=== PATIENT | female | born 1950 | race Caucasian/White ===

== ENCOUNTER 2017-03-12 00:27 | Emergency (ER) | payer MEDICARE ==
[2017-03-12] MEDS ORDERED: SODIUM CHLORIDE 0.9% 1,000 ML IV STA (02:16)
[2017-03-12] MEDS ORDERED: MECLIZINE 12.5 MG TAB PO STA (02:16)
--- NOTE | 2017-03-12 02:24 | ED ---
Dizziness HPI - General Chief Complaint: Dizziness Stated Complaint: Dizzy,Nauseous Time Seen by Provider: 03/12/17 01:52 Source: patient, RN notes reviewed, old records reviewed Mode of arrival: wheelchair Limitations: no limitations - History of Present Illness Initial Comments: 66-year-old female presents emergency Department chief complaint of acute onset of dizziness. Patient was spinning for the past hour. Patient reports that she also said somewhat short of breath. Denies any specific chest pain. Denies any vomiting. She states that she had these symptoms she was laying down at home. She reports that she tried to rest but the room continue to spin and she fell lightheaded. She called her daughter and her daughter brought her here. Patient states that she is concerned maybe something more concerning than vertigo. She denies any headache recent falls or trauma. - Related Data Previous Rx's Medication Instructions Recorded Meclizine [Antivert] 12.5 mg PO Q8HR #15 tablet 03/12/17 Ondansetron Odt [Zofran Odt] 4 mg PO Q8HR PRN #15 tab 03/12/17 Allergies Allergy/AdvReac Type Severity Reaction Status Date / Time No Known Allergies Allergy Verified 01/08/14 17:55 Review of Systems ROS Statement: Those systems with pertinent positive or pertinent negative responses have been documented in the HPI. ROS Other: All systems not noted in ROS Statement are negative. Past Medical History Past Medical History: No Reported History History of Any Multi-Drug Resistant Organisms: None Reported Past Surgical History: Section Past Psychological History: No Psychological Hx Reported Smoking Status: Former smoker Past Alcohol Use History: None Reported Past Drug Use History: None Reported General Exam - General Exam Comments Initial Comments: 66-year-old female. No acute distress. Limitations: no limitations Course Vital Signs 03/12/17 03/12/17 03/12/17 00:39 03:10 04:59 Temperature 97.4 F L 97.7 F Pulse Rate 59 L 53 L Pulse Rate [ 96 Pulse Oximetery ] Respiratory 18 18 Rate Blood Pressure 136/77 159/78 Blood Pressure 128/76 [Right Arm Supine] Blood Pressure 125/69 [Sitting] Blood Pressure 135/72 [Standing] O2 Sat by Pulse 96 96 Oximetry Medical Decision Making - Lab Data Result diagrams: 03/12/17 03:10 03/12/17 03:10 Lab Results 03/12/17 03/12/17 03/12/17 Range/Units 03:10 03:10 03:10 WBC 6.0 (3.8-10.6) k/uL RBC 4.19 (3.80-5.40) m/uL Hgb 13.2 (11.4-16.0) gm/dL Hct 40.6 (34.0-46.0) % MCV 96.7 (80.0-100.0) fL MCH 31.6 (25.0-35.0) pg MCHC 32.6 (31.0-37.0) g/dL RDW 13.9 (11.5-15.5) % Plt Count 190 (150-450) k/uL Neutrophils % 53 % Lymphocytes % 34 % Monocytes % 6 % Eosinophils % 3 % Basophils % 1 % Neutrophils # 3.2 (1.3-7.7) k/uL Lymphocytes # 2.0 (1.0-4.8) k/uL Monocytes # 0.3 (0-1.0) k/uL Eosinophils # 0.2 (0-0.7) k/uL Basophils # 0.1 (0-0.2) k/uL PT 10.9 (9.0-12.0) sec INR 1.1 (<1.2) D-Dimer 0.31 (<0.60) mg/L FEU Sodium 144 (137-145) mmol/L Potassium 4.1 (3.5-5.1) mmol/L Chloride 109 H (98-107) mmol/L Carbon Dioxide 25 (22-30) mmol/L Anion Gap 10 mmol/L BUN 13 (7-17) mg/dL Creatinine 0.90 (0.52-1.04) mg/dL Est GFR (MDRD) Af Amer >60 (>60 ml/min/1.73 sqM) Est GFR (MDRD) Non-Af >60 (>60 ml/min/1.73 sqM) Glucose 90 (74-99) mg/dL Calcium 9.7 (8.4-10.2) mg/dL Total Bilirubin 0.3 (0.2-1.3) mg/dL AST 31 (14-36) U/L ALT 44 (9-52) U/L Alkaline Phosphatase 80 (38-126) U/L Troponin I (0.000-0.034) ng/mL Total Protein 7.1 (6.3-8.2) g/dL Albumin 4.3 (3.5-5.0) g/dL Urine Color Urine Appearance (Clear) Urine pH (5.0-8.0) Ur Specific Johnston (1.001-1.035) Urine Protein (Negative) Urine Glucose (UA) (Negative) Urine Ketones (Negative) Urine Blood (Negative) Urine Nitrite (Negative) Urine Bilirubin (Negative) Urine Urobilinogen (<2.0) mg/dL Ur Leukocyte Esterase (Negative) 03/12/17 03/12/17 Range/Units 03:10 03:10 WBC (3.8-10.6) k/uL RBC (3.80-5.40) m/uL Hgb (11.4-16.0) gm/dL Hct (34.0-46.0) % MCV (80.0-100.0) fL MCH (25.0-35.0) pg MCHC (31.0-37.0) g/dL RDW (11.5-15.5) % Plt Count (150-450) k/uL Neutrophils % % Lymphocytes % % Monocytes % % Eosinophils % % Basophils % % Neutrophils # (1.3-7.7) k/uL Lymphocytes # (1.0-4.8) k/uL Monocytes # (0-1.0) k/uL Eosinophils # (0-0.7) k/uL Basophils # (0-0.2) k/uL PT (9.0-12.0) sec INR (<1.2) D-Dimer (<0.60) mg/L FEU Sodium (137-145) mmol/L Potassium (3.5-5.1) mmol/L Chloride (98-107) mmol/L Carbon Dioxide (22-30) mmol/L Anion Gap mmol/L BUN (7-17) mg/dL Creatinine (0.52-1.04) mg/dL Est GFR (MDRD) Af Amer (>60 ml/min/1.73 sqM) Est GFR (MDRD) Non-Af (>60 ml/min/1.73 sqM) Glucose (74-99) mg/dL Calcium (8.4-10.2) mg/dL Total Bilirubin (0.2-1.3) mg/dL AST (14-36) U/L ALT (9-52) U/L Alkaline Phosphatase (38-126) U/L Troponin I <0.012 (0.000-0.034) ng/mL Total Protein (6.3-8.2) g/dL Albumin (3.5-5.0) g/dL Urine Color Light Yellow Urine Appearance Clear (Clear) Urine pH 6.0 (5.0-8.0) Ur Specific Johnston 1.003 (1.001-1.035) Urine Protein Negative (Negative) Urine Glucose (UA) Negative (Negative) Urine Ketones Negative (Negative) Urine Blood Negative (Negative) Urine Nitrite Negative (Negative) Urine Bilirubin Negative (Negative) Urine Urobilinogen <2.0 (<2.0) mg/dL Ur Leukocyte Esterase Negative (Negative) 03/12/17 05:40 EKG shows sinus bradycardia. Nonspecific ST wave abnormality. Retrograde of 57 bpm. MA interval 166 ms. QRS latter-day 80 ms. No evidence of ST elevation or T-wave inversion. No evidence of a 2 or ventricular arrhythmias. Disposition Clinical Impression: Vertigo Disposition: HOME SELF-CARE Condition: Good Instructions: Vertigo (ED), Dizziness (ED) Additional Instructions: Follow up with PCP tomorrow. Take medication as directed. Return to the Emergency medicine department if any alarming signs or symptoms that occur. Prescriptions: Meclizine [Antivert] 12.5 mg PO Q8HR #15 tablet Ondansetron Odt [Zofran Odt] 4 mg PO Q8HR PRN #15 tab PRN Reason: Nausea Referrals: None,Stated [Primary Care Provider] - 1-2 days Gabriel Rush MD [STAFF PHYSICIAN] - 1-2 days Time of Disposition: 05:20
[2017-03-12 03:43] LABS: Appearance,Urine Clear (Clear); Bilirubin,Urine Negative (Negative); Glucose,Urine (UA) Negative (Negative); Ketones,Urine Negative (Negative); Leukocyte Esterase,Urine Negative (Negative); Nitrite,Urine Negative (Negative); Protein,Urine Negative (Negative); Specific Gravity,Urine 1.003 (1.001-1.035); UA Billing (MACRO vs. MICRO) CHEM; Urobilinogen,Urine <2.0 mg/dL (<2.0)
--- NOTE | 2017-03-12 03:51 | XR ---
EXAM: XR Chest, 2 Views CLINICAL HISTORY: Reason: Pain TECHNIQUE: Frontal and lateral views of the chest. COMPARISON: None FINDINGS: Lungs: There is subsegmental atelectasis at both of the lung bases. There is no focal airspace disease or pulmonary edema. Pleural space: Unremarkable. No pneumothorax. Heart: Unremarkable. No cardiomegaly. Mediastinum: Unremarkable. Bones/joints: Unremarkable. IMPRESSION: Subsegmental atelectasis at bilateral bases. Otherwise, no acute cardiopulmonary abnormalities.
[2017-03-12 03:54] LABS: ALT 44 U/L (9-52); AST 31 U/L (14-36); Alkaline Phosphatase 80 U/L (38-126); Anion Gap 10 mmol/L; Blood Urea Nitrogen 13 mg/dL (7-17); Calcium 9.7 mg/dL (8.4-10.2); Carbon Dioxide 25 mmol/L (22-30); Chloride 109 mmol/L (98-107); Glucose 90 mg/dL (74-99); Non-African American GFR(MDRD) >60 (>60 ml/min/1.73 sqM); Potassium 4.1 mmol/L (3.5-5.1); Sodium 144 mmol/L (137-145); Total Bilirubin 0.3 mg/dL (0.2-1.3); Total Protein 7.1 g/dL (6.3-8.2)
[2017-03-12 03:59] LABS: INR 1.1 (<1.2); Prothrombin Time 10.9 sec (9.0-12.0)
[2017-03-12 04:05] LABS: Basophils # (A) 0.1 k/uL (0-0.2); Basophils % (A) 1 %; CH 32.1; CHCM 33.3; Eosinophils # (A) 0.2 k/uL (0-0.7); Eosinophils % (A) 3 %; HCT 40.6 % (34.0-46.0); HDW 2.43; HGB 13.2 gm/dL (11.4-16.0); Luc # (Auto) 0.16; Luc % (Auto) 3; Lymphocytes % (A) 34 %; MCH 31.6 pg (25.0-35.0); MCHC 32.6 g/dL (31.0-37.0); MCV 96.7 fL (80.0-100.0); Mean Platelet Volume 9.1; Monocytes # (A) 0.3 k/uL (0-1.0); Monocytes % (A) 6 %; Neutrophils # (A) 3.2 k/uL (1.3-7.7); Neutrophils % (A) 53 %; RBC 4.19 m/uL (3.80-5.40); RDW 13.9 % (11.5-15.5); WBC (Perox) 5.34
[2017-03-12 05:03] VITALS: BP 128/76; PULSE 96; RESP 18; TEMP 97.7
== END 2017-03-12 05:38 | disposition home or self-care (01) ==
LOC: EC 00:27
DX: R42 Dizziness and giddiness (principal); R00.1 Bradycardia, unspecified; R06.02 Shortness of breath; Z87.891 Personal history of nicotine dependence; W19.XXXA Unspecified fall, initial encounter
CPT/HCPCS: 36415; 71020; 80053; 81003; 84484; 85025; 85379; 85610; 93005; 96360; 96361; 99284

== ENCOUNTER 2017-09-17 11:52 | Emergency (ER) | payer MEDICARE ==
[2017-09-17 12:23] VITALS: BP 114/75; PULSE 92; RESP 20; TEMP 100.4
[2017-09-17] MEDS ORDERED: ONDANSETRON 4 MG ODT STARTER PACK 2 TAB BTL PO STA (13:09)
[2017-09-17] MEDS ORDERED: ACETAMINOPHEN TAB 500 MG TAB PO STA (13:09)
[2017-09-17] MEDS ORDERED: IBUPROFEN 600 MG TAB PO STA (13:09)
--- NOTE | 2017-09-17 13:11 | ED ---
URI HPI - General Chief Complaint: Upper Respiratory Infection Stated Complaint: Flu Time Seen by Provider: 09/17/17 13:00 Source: patient, RN notes reviewed, old records reviewed Mode of arrival: wheelchair Limitations: no limitations - History of Present Illness Initial Comments: This is a 66-year-old female presents emergency department today chief complaint of fever, body aches, cough and upper respiratory congestion for the past 4 days. She reports that she has not taken any [id number] medications. She denies any fevers or chills. She states that she is up-to- date on vaccinations. Patient states that she has had yellow brownish sputum. No significant medical history. She is a nonsmoker. She reports that she's been having a difficult time sleeping due to the coughing. Patient denies any recent fever, chills, shortness of breath, chest pain, back pain, abdominal pain , nausea vomiting, numbness or tingling, dysuria or hematuria, constipation or diarrhea, headaches or visual changes, or any other current symptoms. - Related Data Previous Rx's Medication Instructions Recorded Acetaminophen Tab [Tylenol] 650 mg PO Q6H #20 tablet 09/17/17 Ibuprofen [Motrin] 600 mg PO Q8HR PRN #20 tab 09/17/17 guaiFENesin-DM 600/30MG [Mucinex 1 each PO Q12HR #20 tab.er.12h 09/17/17 Dm] Allergies Allergy/AdvReac Type Severity Reaction Status Date / Time No Known Allergies Allergy Verified 09/17/17 12:20 Review of Systems ROS Statement: Those systems with pertinent positive or pertinent negative responses have been documented in the HPI. ROS Other: All systems not noted in ROS Statement are negative. Past Medical History Past Medical History: No Reported History History of Any Multi-Drug Resistant Organisms: None Reported Past Surgical History: Section Past Psychological History: No Psychological Hx Reported Smoking Status: Former smoker Past Alcohol Use History: None Reported Past Drug Use History: None Reported General Exam - General Exam Comments Initial Comments: This is a 66-year-old female. Alert and oriented 4. No acute distress. Limitations: no limitations General appearance: alert, in no apparent distress Head exam: Present: atraumatic, normocephalic, normal inspection Eye exam: Present: normal appearance, PERRL, EOMI. Absent: scleral icterus, conjunctival injection, periorbital swelling ENT exam: Present: normal exam, mucous membranes moist Neck exam: Present: normal inspection. Absent: tenderness, meningismus, lymphadenopathy Respiratory exam: Present: normal lung sounds bilaterally. Absent: respiratory distress, wheezes, rales, rhonchi, stridor Cardiovascular Exam: Present: regular rate GI/Abdominal exam: Present: soft, normal bowel sounds. Absent: distended, tenderness, guarding, rebound, rigid Extremities exam: Present: normal inspection, full ROM, normal capillary refill. Absent: tenderness, pedal edema, joint swelling, calf tenderness Back exam: Present: normal inspection Neurological exam: Present: alert, oriented X3, CN II-XII intact Psychiatric exam: Present: normal affect, normal mood Skin exam: Present: warm, dry, intact, normal color. Absent: rash Course Vital Signs 09/17/17 12:20 Temperature 100.4 F H Pulse Rate 92 Respiratory 20 Rate Blood Pressure 114/75 O2 Sat by Pulse 98 Oximetry Medical Decision Making - Medical Decision Making Patient 66-year-old female presents today with upper respiratory symptoms, cough , and fever. Patient's lungs are clear auscultation. Patient has a normal oropharynx. She is also complaining of some mild nausea. Given Zofran Motrin and Tylenol. She does have a positive influenza. Patient has had a symptoms for the past 5 days. Discussed with Tamiflu will not be beneficial this time. Chest x-ray was reviewed and within normal limits. Bilateral atelectasis consistent with COPD. Patient informed of these results. She reports very her prescription for Motrin and Tylenol. Also given a Zofran starter pack. Patient will also be discharged with Mucinex. All questions were answered and return parameters were discussed. Given a referral for PCP. - Lab Data Lab Results 09/17/17 Range/Units 12:55 Influenza Type A RNA Detected H (Not Detectd) Influenza Type B (PCR) Not Detected (Not Detectd) - Radiology Data Radiology results: report reviewed Chest x-ray was reviewed.Linear changes overlying both lung bases suggestive of scar atelectasis findings compatible with COPD. Disposition Clinical Impression: Influenza A Disposition: HOME SELF-CARE Condition: Good Instructions: Influenza (ED) Additional Instructions: Patient advised to follow-up with primary care physician. Patient should take Motrin Tylenol [id number] cold and flu medication. Return to the emergency department if any alarming signs or symptoms occur. Prescriptions: Acetaminophen Tab [Tylenol] 650 mg PO Q6H #20 tablet guaiFENesin-DM 600/30MG [Mucinex Dm] 1 each PO Q12HR #20 tab.er.12h Ibuprofen [Motrin] 600 mg PO Q8HR PRN #20 tab PRN Reason: Pain Referrals: None,Stated [Primary Care Provider] - 1-2 days Isbael Tolentino MD [STAFF PHYSICIAN] - 1-2 days Time of Disposition: 13:49
--- NOTE | 2017-09-17 13:28 | XR ---
EXAMINATION TYPE: XR chest 2V DATE OF EXAM: 09/17/2017 COMPARISON: 03/12/2017 TECHNIQUE: PA and lateral views submitted. HISTORY: Flulike symptoms FINDINGS: The lungs are clear and there is no pneumothorax, pleural effusion, or focal pneumonia. Hyperinflat ion suggests COPD. Linear changes involving the lung suggestive scar or atelectasis. Biapical pleural thickening noted. Diffuse osteopenia and arthropathy of the shoulders. IMPRESSION: 1. Linear changes overlying both lung bases suggestive scar or atelectasis with findings compatible C OPD.
== END 2017-09-17 14:04 | disposition home or self-care (01) ==
LOC: EC 11:52
DX: J09.X2 Influenza due to identified novel influenza A virus with other respiratory manifestations (principal); Z87.891 Personal history of nicotine dependence
CPT/HCPCS: 87502; 71046; 99284; S0119

== ENCOUNTER → 2022-12-12 | Outpatient (CLI) | payer MEDICARE ==
--- NOTE | 2022-12-12 10:40 | BD ---
EXAMINATION TYPE: Axial Bone Density DATE OF EXAM: 12/12/2022 CLINICAL HISTORY: 72 years old Female. ICD-10 CODE: Z78.0 MENOPAUSAL STATE Height: 5 ft 3 1/2 in Weight: 195 FRAX RISK QUESTIONS: Alcohol (3 or more units per day): no Family History (Parent hip fracture): no Glucocorticoids (More than 3mos): no (Ex: prednisone, prednisolone, methylprednisolone, dexamethasone, and hydrocortisone). History of Fracture in Adulthood: yes Secondary Osteoporosis: 1. Type 1 Diabetes: no 2. Hyperthyroidism: no 3. Menopause before 45: no 4. Malnutrition: no 5. Chronic liver disease: no Rheumatoid Arthritis: no Current Tobacco Use: no RISK FACTORS HISTORY OF: Surgery to Spine/Hip(right/left)/Wrist (right/left): no Family History of Osteoporosis: no Active: no Diet low in dairy products/other sources of calcium: no Postmenopausal woman: yes Take estrogen and/or progesterone medications: no Lost more than 2 inches in height since high school: yes Frequent falls: no Poor Health: good Hyperparathyroidism: no Adrenal Insufficiency: no MEDICATIONS: Thyroid Medications: yes Which medication: levothyroxine How Long: sev years Additional Medications: levothyroxine Additional History: EXAM MEASUREMENTS: Bone mineral densitometry was performed using the [employer] System. Bone mineral density as measured about the Lumbar spine is: ----- L1-L4(G/cm2): 0.925 T Score Values are as follows: ----- L1: -2.8 ----- L2: -2.4 ----- L3: -2.3 ----- L4: -1.2 ----- L1-L4: -2.1 Z Score Values are as follows: ----- L1: -1.8 ----- L2: -1.4 ----- L3: -1.4 ----- L4: -0.3 ----- L1-L4: -1.2 baseline Bone mineral density about the R hip (g/cm2): 0.729 Bone mineral density about the L hip (g/cm2): 0.698 T Score values are as follows: -----R Neck: -2.2 -----L Neck: -2.4 -----R Total: -1.7 -----L Total: -1.4 Z Score values are as follows: -----R Neck: -0.9 -----L Neck: -1.1 -----R Total: -0.6 -----L Total: -0.4 baseline FRAX%s: The graph provided illustrates a 22.2% chance for a major osteoporotic fx and a 5.8% chance f or the hips probability for fx in 10 years time. IMPRESSION: Osteopenia (T Score between -2.5 and -1). There is slightly increased risk of fracture and the patient may be considered for treatment. Re-Screen 2-5 years. NOTE: T-SCORE=SD OF THE YOUNG ADULT MEAN.
== END | disposition home or self-care (01) ==
LOC: RADBDWWP 09:08
PROVIDERS: ATTEND Family Medicine
DX: Z00.00 Encounter for general adult medical examination without abnormal findings (principal); M81.0 Age-related osteoporosis without current pathological fracture; M85.89 Other specified disorders of bone density and structure, multiple sites; Z78.0 Asymptomatic menopausal state
CPT/HCPCS: 77080

== ENCOUNTER 2023-03-09 16:16 | Emergency (ER) | payer MEDICARE ==
[2023-03-09] MEDS ORDERED: MORPHINE SULFATE 4 MG/ML SYRINGE IVP STA (17:08)
--- NOTE | 2023-03-09 17:16 | ED ---
Fall HPI - General Chief Complaint: Fall Stated Complaint: Fall Time Seen by Provider: 03/09/23 16:55 Source: patient Mode of arrival: ambulatory - History of Present Illness Initial Comments: 72-year-old female presenting for evaluation after trip and fall that occurred 2 days ago. Patient states that she fell into bricks on the side of her daughter's patio and landed on her left side. She is complaining of left hip pain and left lower quadrant pain. She has a large bruise to the left flank. She has pain with sitting and laying down. She denies headache injury, loss of consciousness, use of blood thinners. No nausea, vomiting, chest pain, difficulty breathing, dizziness, vision or hearing changes, headache, neck pain. - Related Data Previous Rx's Medication Instructions Recorded Acetaminophen Tab [Tylenol] 650 mg PO Q6H #20 tablet 09/17/17 Ibuprofen [Motrin] 600 mg PO Q8HR PRN #20 tab 09/17/17 guaiFENesin-DM 600/30MG [Mucinex 1 each PO Q12HR #20 tab.er.12h 09/17/17 Dm] Amoxic-Pot Clav 875-125Mg 1 tab PO Q12HR 10 Days #20 tab 03/09/23 [Augmentin 875-125] Allergies Allergy/AdvReac Type Severity Reaction Status Date / Time No Known Allergies Allergy Verified 03/09/23 16:52 Review of Systems ROS Statement: Those systems with pertinent positive or pertinent negative responses have been documented in the HPI. ROS Other: All systems not noted in ROS Statement are negative. Past Medical History Past Medical History: Thyroid Disorder History of Any Multi-Drug Resistant Organisms: None Reported Past Surgical History: Section Past Psychological History: No Psychological Hx Reported Smoking Status: Former smoker Past Alcohol Use History: None Reported Past Drug Use History: None Reported General Exam Limitations: no limitations General appearance: alert, in no apparent distress Head exam: Present: atraumatic, normocephalic, normal inspection Eye exam: Present: normal appearance Neck exam: Present: normal inspection, full ROM Respiratory exam: Present: normal lung sounds bilaterally. Absent: respiratory distress, wheezes, rales, rhonchi, stridor Cardiovascular Exam: Present: regular rate, normal rhythm, normal heart sounds. Absent: systolic murmur, diastolic murmur, rubs, gallop, clicks GI/Abdominal exam: Present: soft, tenderness, guarding. Absent: distended, rebound, rigid Extremities exam: Present: tenderness. Absent: full ROM Neurological exam: Present: alert, oriented X3, CN II-XII intact Psychiatric exam: Present: normal affect, normal mood Skin exam: Present: other (Bruising to the bilateral flanks) Course Vital Signs 03/09/23 03/09/23 03/09/23 16:49 19:30 20:35 Temperature 98.1 F 98.2 F Pulse Rate 89 88 82 Respiratory 20 18 18 Rate Blood Pressure 169/74 127/85 126/72 O2 Sat by Pulse 97 99 99 Oximetry Medical Decision Making - Medical Decision Making Was pt. sent in by a medical professional or institution (, PA, [employer]TER, urgent care, hospital, or [facility]...) When possible be specific @ -No Did you speak to anyone other than the patient for history (EMS, parent, family, police, friend...)? What history was obtained from this source @ -No Did you review nursing and triage notes (agree or disagree)? Why? @ -I reviewed and agree with nursing and triage notes Were old charts reviewed (outside hosp., previous admission, EMS record, old EKG, old radiological studies, urgent care reports/EKG's, [facility] records)? Report findings @ -No old charts were reviewed Differential Diagnosis (chest pain, altered mental status, abdominal pain women, abdominal pain men, vaginal bleeding, weakness, fever, dyspnea, syncope, headache, dizziness, GI bleed, back pain, seizure, CVA, palpatations, mental health, musculoskeletal)? @ -MDM Differential Abdominal Pain Women: Appendicitis, Cholecystitis, diverticulosis, ischemic bowel, pancreatitis, hepatitis, UTI, gastroenteritis, AAA, incarcerated hernia, bowel obstruction, constipation, inflammatory bowel, hepatitis, peptic ulcer disease, splenic infarction, perforated viscus, vulvitis, ovarian torsion, PID, kidney stone, placenta abruption... This is not meant to be an all-inclusive list EKG interpreted by me (3pts min.). @ -As above X-rays interpreted by me (1pt min.). @ -Negative x-ray of the bilateral hips and pelvis CT interpreted by me (1pt min.). @ -CT of the abdomen and pelvis shows left-sided colonic diverticulosis, appears positive for mild acute diverticulitis along the proximal sigmoid colon. No abscess or free air. There is a chronic appearing vertebral compression deformity of L4. Tiny hiatal hernia and mild hepatomegaly at 18.[address] of the brain and cervical spine U/S interpreted by me (1pt. min.). @ -None done What testing was considered but not performed or refused? (CT, X-rays, U/S, labs)? Why? @ -None What meds were considered but not given or refused? Why? @ -None Did you discuss the management of the patient with other professionals (professionals i.e. , PA, [employer]TER, lab, RT, psych nurse, social welfare clerk, per assessment nurse, teacher, chief data officer, case management director)? Give summary @ -No Was smoking cessation discussed for >3mins.? @ -No Was critical care preformed (if so, how long)? @ -No Were there social determinants of health that impacted care today? How? (Homele ssness, low income, unemployed, alcoholism, drug addiction, transportation, low edu. Level, literacy, decrease access to med. care, senior living, rehab)? @ -No Was there de-escalation of care discussed even if they declined (Discuss DNR or withdrawal of care, Hospice)? DNR status @ -No What co-morbidities impacted this encounter? (DM, HTN, Smoking, COPD, CAD, Cancer, CVA, ARF, Chemo, Hep., AIDS, mental health diagnosis, sleep apnea, morbid obesity)? @ -None Was patient admitted / discharged? Hospital course, mention meds given and route, prescriptions, significant lab abnormalities, going to OR and other pertinent info. @ -72-year-old female presenting with chief complaint of pain to the left hip and left side of the abdomen after a fall that occurred 2 days ago. On physical examination there is left lower quadrant tenderness. Lab work shows no leukocytosis. Hemoglobin 10.6. CMP is unremarkable. Negative CT of the brain and cervical spine. Negative CT of the hips and pelvis. CT of abdomen and pelvis suggest diverticulitis. Patient states that she was having some crampy abdominal pain prior to her fall. She will be treated with Augmentin. Follow-up with PCP. Report back to ER with any new or worsening symptoms. Discussed return parameters and answered all questions. Patient conveyed verbal understanding and agreed to the plan. I discussed this case in detail with my attending Dr. Handley Undiagnosed new problem with uncertain prognosis? @ -No Drug Therapy requiring intensive monitoring for toxicity (Heparin, Nitro, Insulin, Cardizem)? @ -No Were any procedures done? @ -No Diagnosis/symptom? @ -Diverticulitis Acute, or Chronic, or Acute on Chronic? @ -Acute Uncomplicated (without systemic symptoms) or Complicated (systemic symptoms)? @ -Uncomplicated Side effects of treatment? @ -No Exacerbation, Progression, or Severe Exacerbation? @ -No Poses a threat to life or bodily function? How? (Chest pain, USA, CA, pneumonia, PE, COPD, DKA, ARF, appy, cholecystitis, CVA, Diverticulitis, Homicidal, Suicidal, threat to staff... and all critical care pts) @ -No - Lab Data Result diagrams: 03/09/23 17:25 03/09/23 17:25 Lab Results 03/09/23 03/09/23 Range/Units 17:25 17:25 WBC 5.1 (3.8-10.6) k/uL RBC 3.56 L (3.80-5.40) m/uL Hgb 10.6 L (11.4-16.0) gm/dL Hct 33.2 L (34.0-46.0) % MCV 93.1 (80.0-100.0) fL MCH 29.9 (25.0-35.0) pg MCHC 32.1 (31.0-37.0) g/dL RDW 14.7 (11.5-15.5) % Plt Count 101 L (150-450) k/uL MPV 11.4 Neutrophils % 38 % Lymphocytes % 36 % Monocytes % 17 % Eosinophils % 7 % Basophils % 0 % Neutrophils # 1.9 (1.3-7.7) k/uL Lymphocytes # 1.9 (1.0-4.8) k/uL Monocytes # 0.9 (0-1.0) k/uL Eosinophils # 0.3 (0-0.7) k/uL Basophils # 0.0 (0-0.2) k/uL Sodium 140 (137-145) mmol/L Potassium 4.1 (3.5-5.1) mmol/L Chloride 107 (98-107) mmol/L Carbon Dioxide 23 (22-30) mmol/L Anion Gap 10 mmol/L BUN 12 (7-17) mg/dL Creatinine 1.00 (0.52-1.04) mg/dL Est GFR (CKD-EPI)AfAm 65 (>60 ml/min/1.73 sqM) Est GFR (CKD-EPI)NonAf 56 (>60 ml/min/1.73 sqM) Glucose 89 (74-99) mg/dL Calcium 9.1 (8.4-10.2) mg/dL Total Bilirubin 0.5 (0.2-1.3) mg/dL AST 27 (14-36) U/L ALT 15 (4-34) U/L Alkaline Phosphatase 81 (38-126) U/L Total Protein 7.2 (6.3-8.2) g/dL Albumin 4.1 (3.5-5.0) g/dL Disposition Clinical Impression: Diverticulitis Disposition: HOME SELF-CARE Condition: Good Instructions (If sedation given, give patient instructions): Diverticulitis (ED ), Diverticulitis Diet (ED) Additional Instructions: Follow-up with PCP. Report back to ER with any new or worsening symptoms, including but not limited to worsening pain, vomiting, fevers. Take medication as prescribed. Prescriptions: Amoxic-Pot Clav 875-125Mg [Augmentin 875-125] 1 tab PO Q12HR 10 Days #20 tab Is patient prescribed a controlled substance at d/c from ED?: No Referrals: Jorge Cho Jr, [Primary Care Provider] - 1-2 days Time of Disposition: 20:13
[2023-03-09 17:56] LABS: Basophils % (A) 0 %; Eosinophils # (A) 0.3 k/uL (0-0.7); Eosinophils % (A) 7 %; HCT 33.2 % (34.0-46.0); HGB 10.6 gm/dL (11.4-16.0); Lymphocytes # (A) 1.9 k/uL (1.0-4.8); Lymphocytes % (A) 36 %; MCH 29.9 pg (25.0-35.0); MCHC 32.1 g/dL (31.0-37.0); MCV 93.1 fL (80.0-100.0); Mean Platelet Volume 11.4; Monocytes # (A) 0.9 k/uL (0-1.0); Monocytes % (A) 17 %; Neutrophils # (A) 1.9 k/uL (1.3-7.7); Neutrophils % (A) 38 %; Platelet Count 101 k/uL (150-450); RBC 3.56 m/uL (3.80-5.40); RDW 14.7 % (11.5-15.5); WBC 5.1 k/uL (3.8-10.6)
--- NOTE | 2023-03-09 17:57 | XR ---
EXAMINATION TYPE: XR AP view pelvis and 2 views each hip DATE OF EXAM: 03/09/2023 COMPARISON: NONE HISTORY: 72-year-old female pain after fall FINDINGS: Degenerative levoconvex curvature of the visualized lumbar spine. SI joints appear symmetri c and intact. Mild degenerative spurring of both hips. No acute fracture, subluxation, or dislocation is seen. IMPRESSION: Mild degenerative spurring of both hips. No acute osseous abnormality seen.
[2023-03-09 18:06] LABS: ALT 15 U/L (4-34); AST 27 U/L (14-36); African American GFR (CKD) 65 (>60 ml/min/1.73 sqM); Albumin 4.1 g/dL (3.5-5.0); Alkaline Phosphatase 81 U/L (38-126); Anion Gap 10 mmol/L; Blood Urea Nitrogen 12 mg/dL (7-17); Calcium 9.1 mg/dL (8.4-10.2); Carbon Dioxide 23 mmol/L (22-30); Chloride 107 mmol/L (98-107); Glucose 89 mg/dL (74-99); Non-African American GFR(CKD) 56 (>60 ml/min/1.73 sqM); Potassium 4.1 mmol/L (3.5-5.1); Sodium 140 mmol/L (137-145); Total Bilirubin 0.5 mg/dL (0.2-1.3); Total Protein 7.2 g/dL (6.3-8.2)
--- NOTE | 2023-03-09 19:23 | CT ---
EXAMINATION TYPE: CT brain [facility] con DATE OF EXAM: 03/09/2023 COMPARISON: None HISTORY: 72-year-old female pain after Fall CT DLP: 1361.8 mGycm Automated exposure control for dose reduction was used. Technique: Examination of the head was done in axial plane without intravenous contrast. Coronal and sagittal reconstructions performed. CT of the cervical spine was obtained in axial plane without intravenous injection of contrast mater ial. Coronal and sagittal reformatted images were obtained from the axial views for evaluation of f ractures, spinal alignment and canal. FINDINGS: Head: There is no evidence of acute intracranial hemorrhage, acute ischemic changes, mass, mass-effect, or extra-axial fluid collection. There is no effacement of cerebral sulci or basal subarachnoid cister ns. There is no hydrocephalus. There is no midline shift. Shen-white matter distinction is preserv ed. Moderate patchy white matter hypodensities in both cerebral hemispheres. Cervical spine: No craniocervical junction anomaly, predental space widening, or prevertebral soft tissue swelling. Moderate spondylitic changes especially C4-C7 levels. Disc osteophyte complex at these levels contrib santo to mild narrowing of the spinal canal. No acute fracture of the cervical spine. Alignment is maintained and there is reversal of the normal cervical lordosis. Moderate right neuroforaminal stenosis at C3-C4 and on both sides at C4-C5 and on the right at C5-C6. Sagittal and coronal reformatted images confirm above findings. COMBINED IMPRESSION: 1. Moderate patchy periventricular chronic small vessel ischemic disease. No acute intracranial abnor mality seen. 2. No acute fracture or malalignment of the cervical spine. Moderate spondylotic change.
[2023-03-09 19:47] VITALS: RESP 18
--- NOTE | 2023-03-09 19:48 | CT ---
EXAMINATION TYPE: CT abdomen pelvis w con DATE OF EXAM: 03/09/2023 COMPARISON: NONE HISTORY: 72-year-old female with left sided abdominal pain, post-fall TECHNIQUE: Contiguous axial scanning of the abdomen and pelvis following administration of 100 ml Iso christine 300 IV contrast. Delayed images through the kidneys and coronal/sagittal reconstructions perform ed. CT DLP: 1530.3 mGycm Automated exposure control for dose reduction was used. FINDINGS: Heart normal size without pericardial effusion. Strandy atelectasis at the lung bases. No pleural eff usion. Tiny hiatal hernia. Liver enlarged at 18.4 cm. No focal lesion. Portal venous system is patent. No biliary ductal dilatat ion. Gallbladder, adrenal glands, left kidney, spleen with hilar splenule, and pancreas within normal limi ts. 7 mm cortical cyst lower pole right kidney. Normal appendix. Moderate stool burden. Left-sided colonic diverticulosis. There is mild wall thicken ing and mild pericolonic inflammatory fat stranding along the proximal sigmoid colon. No dilated small bowel, free fluid, or free air. No mesenteric or retroperitoneal lymphadenopathy. Bladder is urine distended. Uterus anteverted. Small bilateral ovaries. No abnormal fluid collection in pelvis or pelvic lymphadenopathy. Bones: Chronic appearing vertebral compression deformity of L4. Retropulsion into the ventral spinal canal contributes to possible focal severe spinal canal stenosis. IMPRESSION: 1. LEFT-SIDED COLONIC DIVERTICULOSIS. THE EXAM APPEARS POSITIVE FOR MILD ACUTE DIVERTICULITIS ALONG T HE PROXIMAL SIGMOID COLON. NO ABSCESS OR FREE AIR. 2. CHRONIC-APPEARING VERTEBRAL COMPRESSION DEFORMITY OF L4. RETROPULSION AT THIS LEVEL CONTRIBUTES TO POSSIBLE FOCAL SEVERE SPINAL CANAL STENOSIS. 3. TINY HIATAL HERNIA AND MILD HEPATOMEGALY AT 18.4 CM.
[2023-03-09] MEDS ORDERED: ACET/COD 300 MG/30 MG STARTER PACK 6 TAB BTL PO STA (20:13)
[2023-03-09] MEDS ORDERED: AMOXIC-POT CLAV 875-125MG 1 EACH TAB PO STA (20:14)
[2023-03-09 20:56] VITALS: BP 126/72; PULSE 82; TEMP 98.2
== END 2023-03-09 20:40 | disposition home or self-care (01) ==
LOC: EC 16:16
DX: M48.56XA Collapsed vertebra, not elsewhere classified, lumbar region, initial encounter for fracture (principal); K57.30 Diverticulosis of large intestine without perforation or abscess without bleeding; M48.02 Spinal stenosis, cervical region; K44.9 Diaphragmatic hernia without obstruction or gangrene; I67.82 Cerebral ischemia; Z87.891 Personal history of nicotine dependence; W18.30XA Fall on same level, unspecified, initial encounter
CPT/HCPCS: 36415; 80053; 85025; 73521; 72125; 70450; 74177; 99285; 96374; J2270; Q9967

== ENCOUNTER 2023-08-21 10:16 | Emergency (ER) | payer MEDICARE ==
--- NOTE | 2023-08-21 10:36 | ED ---
General Adult HPI <Girish Meza - Last Filed: 08/21/23 10:36> - General Source: patient, RN notes reviewed Mode of arrival: ambulatory Limitations: no limitations <Perfecto Dyson - Last Filed: 08/21/23 14:55> - General Stated complaint: Covid/Abd pain Time Seen by Provider: 08/21/23 10:35 - History of Present Illness Initial comments: 72-year-old female into the ED with a chief complaint nausea and vomiting. Patient states 2 weeks ago was diagnosed with COVID. Since then notes ongoing nausea and vomiting. Denies fever and abdominal pain. (Girish Meza) 72-year-old female presents emergency Department chief complaint fever chills cough and cold like symptoms. Patient states that she still been having issues since her Covid diagnosis. Patient states she took antiviral medications that she initially felt better but has worsened after the treatment. Patient states she's felt like she contracted something new. Patient denies any localized abdominal pain. She states she eats and she has loose stools. She has a headache or dizziness no chest pain or shortness of breath. (Perfecto Dyson) - Related Data Previous Rx's Medication Instructions Recorded Acetaminophen Tab [Tylenol] 650 mg PO Q6H #20 tablet 09/17/17 Ibuprofen [Motrin] 600 mg PO Q8HR PRN #20 tab 09/17/17 guaiFENesin-DM 600/30MG [Mucinex 1 each PO Q12HR #20 tab.er.12h 09/17/17 Dm] Amoxic-Pot Clav 875-125Mg 1 tab PO Q12HR 10 Days #20 tab 03/09/23 [Augmentin 875-125] Ondansetron Odt [Zofran Odt] 4 mg PO Q8HR PRN #10 tab 08/21/23 Allergies Allergy/AdvReac Type Severity Reaction Status Date / Time No Known Allergies Allergy Verified 08/21/23 11:25 Review of Systems ROS Other: All systems not noted in ROS Statement are negative. <Girish Meza - Last Filed: 08/21/23 10:36> ROS Other: All systems not noted in ROS Statement are negative. <Perfecto Dyson - Last Filed: 08/21/23 14:55> ROS Statement: Those systems with pertinent positive or pertinent negative responses have been documented in the HPI. Past Medical History Past Medical History: Thyroid Disorder History of Any Multi-Drug Resistant Organisms: None Reported Past Surgical History: Section Past Psychological History: No Psychological Hx Reported Smoking Status: Former smoker Past Alcohol Use History: None Reported Past Drug Use History: None Reported <Girish Meza - Last Filed: 08/21/23 10:36> General Exam <Girish Meza - Last Filed: 08/21/23 10:36> General appearance: alert, in no apparent distress Head exam: Present: atraumatic, normocephalic, normal inspection Eye exam: Present: normal appearance, PERRL, EOMI. Absent: scleral icterus, conjunctival injection, periorbital swelling ENT exam: Present: normal exam, mucous membranes moist Neck exam: Present: normal inspection, full ROM. Absent: tenderness, meningismus, lymphadenopathy Respiratory exam: Present: normal lung sounds bilaterally. Absent: respiratory distress, wheezes, rales, rhonchi, stridor Cardiovascular Exam: Present: regular rate, normal rhythm, normal heart sounds. Absent: systolic murmur, diastolic murmur, rubs, gallop, clicks GI/Abdominal exam: Present: soft, normal bowel sounds. Absent: distended, tenderness, guarding, rebound, rigid <Perfecto Dyson - Last Filed: 08/21/23 14:55> - General Exam Comments Initial Comments: Visual Physical Exam Vital signs reviewed General: Well-appearing, nontoxic, no acute distress. Head: Normocephalic, atraumatic Eyes: PERRLA, EOMI ENT: Airway patent Chest: Nonlabored breathing Skin: No visual rash, normal skin tone Neuro: Alert and oriented 3 Musculoskeletal: No gross abnormalities (Girish Meza) Course Vital Signs 08/21/23 08/21/23 11:22 14:34 Temperature 97.8 F 98 F Pulse Rate 119 H 91 Respiratory 18 16 Rate Blood Pressure 124/93 144/75 O2 Sat by Pulse 100 99 Oximetry Medical Decision Making <Girish Meza - Last Filed: 08/21/23 10:36> - Lab Data Result diagrams: 08/21/23 11:25 08/21/23 11:25 <Perfecto Dyson - Last Filed: 08/21/23 14:55> - Medical Decision Making Quicknote portion performed. Signed Girish Meza PA-C (Girish Meza) Was pt. sent in by a medical professional or institution ([facility] Conti, [employer] SCIENTIST, urgent care, hospital, or retirement...) When possible be specific @ -No Did you speak to anyone other than the patient for history (EMS, parent, family, police, friend...)? What history was obtained from this source @ -No Did you review nursing and triage notes (agree or disagree)? Why? @ -I reviewed and agree with nursing and triage notes Were old charts reviewed (outside hosp., previous admission, EMS record, old EKG, old radiological studies, urgent care reports/EKG's, retirement records)? Report findings @ -No old charts were reviewed Differential Diagnosis (chest pain, altered mental status, abdominal pain women, abdominal pain men, vaginal bleeding, weakness, fever, dyspnea, syncope, headac he, dizziness, GI bleed, back pain, seizure, CVA, palpatations, mental health, musculoskeletal)? @ -COVID 19, RSV, influenza, pneumonia, acute bronchitis, URI, this list is not all inclusivee EKG interpreted by me (3pts min.). @ -None X-rays interpreted by me (1pt min.). @ -None done CT interpreted by me (1pt min.). @ -None done U/S interpreted by me (1pt. min.). @ -None done What testing was considered but not performed or refused? (CT, X-rays, U/S, labs)? Why? @ -None What meds were considered but not given or refused? Why? @ -None Did you discuss the management of the patient with other professionals (professionals i.e. LASHANDA Conti, [employer] SCIENTIST, lab, RT, psych nurse, social services director, second operator, teacher, bomb squad officer, outpatient case manager)? Give summary @ -No Was smoking cessation discussed for >3mins.? @ -No Was critical care preformed (if so, how long)? @ -No Were there social determinants of health that impacted care today? How? (Homelessness, low income, unemployed, alcoholism, drug addiction, transportation, low edu. Level, literacy, decrease access to med. care, prison, rehab)? @ -No Was there de-escalation of care discussed even if they declined (Discuss DNR or withdrawal of care, Hospice)? DNR status @ -No What co-morbidities impacted this encounter? (DM, HTN, Smoking, COPD, CAD, Cancer, CVA, ARF, Chemo, Hep., AIDS, mental health diagnosis, sleep apnea, morbid obesity)? @ -None Was patient admitted / discharged? Hospital course, mention meds given and route, prescriptions, significant lab abnormalities, going to OR and other pertinent info. @ -Discharge patient felt improved with antiemetics. Patient does not have any abdominal tenderness patient vitals are stable. Patient is positive for COVID- 19. Patient will be discharged with antiemetics as a seemed to improve her symptoms return parameters were discussed. Undiagnosed new problem with uncertain prognosis? @ -No Drug Therapy requiring intensive monitoring for toxicity (Heparin, Nitro, Insulin, Cardizem)? @ -No Were any procedures done? @ -No Diagnosis/symptom? @ -COVID-19, nausea vomiting Acute, or Chronic, or Acute on Chronic? @ -Acute Uncomplicated (without systemic symptoms) or Complicated (systemic symptoms)? @ -Uncomplicated Side effects of treatment? @ -No Exacerbation, Progression, or Severe Exacerbation? @ -No Poses a threat to life or bodily function? How? (Chest pain, USA, NM, pneumonia, PE, COPD, DKA, ARF, appy, cholecystitis, CVA, Diverticulitis, Homicidal, Suicidal, threat to staff... and all critical care pts) @ -No (Perfecto Dyson) - Lab Data Lab Results 08/21/23 08/21/23 08/21/23 Range/Units 11:25 11:25 11:25 WBC 7.8 (3.8-10.6) k/uL RBC 4.72 (3.80-5.40) m/uL Hgb 14.3 (11.4-16.0) gm/dL Hct 43.4 (34.0-46.0) % MCV 92.0 (80.0-100.0) fL MCH 30.3 (25.0-35.0) pg MCHC 32.9 (31.0-37.0) g/dL RDW 14.5 (11.5-15.5) % Plt Count 128 L (150-450) k/uL MPV 12.1 Neutrophils % 59 % Lymphocytes % 20 % Monocytes % 15 % Eosinophils % 4 % Basophils % 0 % Neutrophils # 4.6 (1.3-7.7) k/uL Lymphocytes # 1.6 (1.0-4.8) k/uL Monocytes # 1.2 H (0-1.0) k/uL Eosinophils # 0.3 (0-0.7) k/uL Basophils # 0.0 (0-0.2) k/uL Sodium 137 (137-145) mmol/L Potassium 4.8 (3.5-5.1) mmol/L Chloride 101 (98-107) mmol/L Carbon Dioxide 20 L (22-30) mmol/L Anion Gap 16 mmol/L BUN 26 H (7-17) mg/dL Creatinine 1.03 (0.52-1.04) mg/dL Est GFR (CKD-EPI)AfAm 62 (>60 ml/min/1.73 sqM) Est GFR (CKD-EPI)NonAf 54 (>60 ml/min/1.73 sqM) Glucose 104 H (74-99) mg/dL Calcium 9.5 (8.4-10.2) mg/dL Total Bilirubin 0.9 (0.2-1.3) mg/dL AST 32 (14-36) U/L ALT 17 (4-34) U/L Alkaline Phosphatase 68 (38-126) U/L Total Protein 6.6 (6.3-8.2) g/dL Albumin 3.7 (3.5-5.0) g/dL Amylase 149 H (30-110) U/L Lipase 501 H (23-300) U/L Influenza Type A (PCR) Not Detected (Not Detectd) Influenza Type B (PCR) Not Detected (Not Detectd) RSV (PCR) Not Detected (Not Detectd) SARS-CoV-2 (PCR) Detected A (Not Detectd) Disposition <Girish Meza - Last Filed: 08/21/23 10:36> Is patient prescribed a controlled substance at d/c from ED?: No Time of Disposition: 14:36 <Perfecto Dyson - Last Filed: 08/21/23 14:55> Clinical Impression: COVID-19, Nausea and vomiting Disposition: HOME SELF-CARE Condition: Stable Instructions (If sedation given, give patient instructions): COVID-19 (Coronavirus Disease 2019) (ED) Additional Instructions: Please return to the Emergency Department if symptoms worsen or any other c oncerns. Prescriptions: Ondansetron Odt [Zofran Odt] 4 mg PO Q8HR PRN #10 tab PRN Reason: Nausea Referrals: Jorge Cho Jr, [Primary Care Provider] - 1-2 days
[2023-08-21 11:40] LABS: Basophils % (A) 0 %; Eosinophils # (A) 0.3 k/uL (0-0.7); Eosinophils % (A) 4 %; HCT 43.4 % (34.0-46.0); HGB 14.3 gm/dL (11.4-16.0); Lymphocytes # (A) 1.6 k/uL (1.0-4.8); Lymphocytes % (A) 20 %; MCH 30.3 pg (25.0-35.0); MCHC 32.9 g/dL (31.0-37.0); Mean Platelet Volume 12.1; Monocytes # (A) 1.2 k/uL (0-1.0); Monocytes % (A) 15 %; Neutrophils # (A) 4.6 k/uL (1.3-7.7); Neutrophils % (A) 59 %; Platelet Count 128 k/uL (150-450); RBC 4.72 m/uL (3.80-5.40); RDW 14.5 % (11.5-15.5); WBC 7.8 k/uL (3.8-10.6)
[2023-08-21 11:56] LABS: ALT 17 U/L (4-34); AST 32 U/L (14-36); African American GFR (CKD) 62 (>60 ml/min/1.73 sqM); Albumin 3.7 g/dL (3.5-5.0); Alkaline Phosphatase 68 U/L (38-126); Amylase 149 U/L (30-110); Anion Gap 16 mmol/L; Blood Urea Nitrogen 26 mg/dL (7-17); Calcium 9.5 mg/dL (8.4-10.2); Carbon Dioxide 20 mmol/L (22-30); Chloride 101 mmol/L (98-107); Glucose 104 mg/dL (74-99); Lipase 501 U/L (23-300); Non-African American GFR(CKD) 54 (>60 ml/min/1.73 sqM); Potassium 4.8 mmol/L (3.5-5.1); Sodium 137 mmol/L (137-145); Total Bilirubin 0.9 mg/dL (0.2-1.3); Total Protein 6.6 g/dL (6.3-8.2)
[2023-08-21] MEDS ORDERED: ONDANSETRON 4 MG ODT STARTER PACK 2 TAB BTL PO STA (14:35)
[2023-08-21 14:56] LABS: Appearance,Urine Cloudy (Clear); Bacteria,Urine Rare /hpf; Bilirubin,Urine Negative (Negative); Blood,Urine Negative (Negative); Color,Urine Yellow; Glucose,Urine (UA) Negative (Negative); Hyaline Casts,Urine 14 /lpf (0-2); Ketones,Urine 3+ (Negative); Leukocyte Esterase,Urine Moderate (Negative); Mucus,Urine Many /hpf; Nitrite,Urine Negative (Negative); PH, Urine 5.5 (5.0-8.0); Protein,Urine 1+ (Negative); RBC,Urine 1 /hpf (0-5); Specific Gravity,Urine 1.034 (1.001-1.035); Squamous Epithelial Cell,Urine 4 /hpf (0-4); WBC,Urine 1 /hpf (0-5)
[2023-08-21 15:09] VITALS: BP 144/75; PULSE 91; RESP 16; TEMP 98
== END 2023-08-21 14:58 | disposition home or self-care (01) ==
LOC: EC 10:16
DX: U07.1 COVID-19 (principal); Z87.891 Personal history of nicotine dependence
CPT/HCPCS: 36415; 80053; 82150; 83690; 85025; 81001; 87636; 99284; S0119

== ENCOUNTER → 2023-09-24 | Outpatient (CLI) | payer MEDICARE ==
--- NOTE | 2023-09-24 09:57 | US ---
EXAMINATION TYPE: US abdomen complete DATE OF EXAM: 09/24/2023 COMPARISON: NONE CLINICAL INDICATION: Female, 72 years old with history of R10.13 EPIGASTRIC PAIN; on and off abd pain for 2 months, pain after eating TECHNIQUE: Multiple sonographic images of the abdomen are obtained. FINDINGS: EXAM MEASUREMENTS: Liver Length: 13.9 cm Gallbladder Wall: 0.2 cm CBD: 0.3 cm Spleen: 10.9 cm Right Kidney: 9.6 x 3.5 x 4.1 cm Left Kidney: 9.9 x 3.6 x 4.6 cm Pancreas: wnl Liver: wnl Gallbladder: multiple shadowing stones along with comet tail artifacts surround GB wall, probable ad enomyomatosis Evidence for sonographic Mo's sign: no CBD: wnl Spleen: wnl Right Kidney: wnl Left Kidney: wnl Upper IVC: wnl Abd Aorta: wnl The liver is homogenous. The intrahepatic portion of the IVC and proximal abdominal aorta are within normal limits. Common bile duct is unremarkable. The visualized portions of the pancreas are homog enous. The spleen is unremarkable. Kidneys are symmetric and free of hydronephrosis. No renal lesi ons are seen. IMPRESSION: multiple shadowing stones along with comet tail artifacts surround GB wall, probable adenomyomatosis
== END | disposition home or self-care (01) ==
LOC: RADUSWWP 09:26
PROVIDERS: ATTEND Family Medicine
DX: R10.13 Epigastric pain (principal)
CPT/HCPCS: 76700

== ENCOUNTER → 2024-01-02 | Outpatient (CLI) | payer MEDICARE ==
--- NOTE | 2024-01-02 15:13 | US ---
EXAMINATION TYPE: US carotid duplex BILAT DATE OF EXAM: 01/02/2024 COMPARISON: NONE CLINICAL INDICATION: Female, 73 years old with history of R200 BILATERAL HAND NUMBNESS; Patient state s bilateral hand tingling while urinating. Hx migraines, dizzy/lightheaded TECHNIQUE: Carotid duplex ultrasound examination. Indirect Doppler criteria was utilized. FINDINGS: EXAM MEASUREMENTS: RIGHT: Peak Systolic Velocity (PSV) cm/sec ----- Right CCA: 64 ----- Right ICA: 77 ----- Right ECA: 74 ICA/CCA ratio: 1.2 RIGHT: End Diastole cm/sec ----- Right CCA: 17 ----- Right ICA: 21 ----- Right ECA: 7 LEFT: Peak Systolic Velocity (PSV) cm/sec ----- Left CCA: 64 ----- Left ICA: 85 ----- Left ECA: 49 ICA/CCA ratio: 1.3 LEFT: End Diastole cm/sec ----- Left CCA: 21 ----- Left ICA: 30 ----- Left ECA: 6 VERTEBRALS (direction of flow): Right Vertebral: Antegrade Left Vertebral: Antegrade Rhythm: Normal SITE DAMAGE PREVENTION TECHNICIAN NOTES: No intimal thickening, plaque, or elevated velocities noted. Tortuous ICA and ECA bilaterally IMPRESSION: No significant hemodynamic stenosis. Criteria for Assigning % of Stenosis / Diameter reduction (Estimation based on the indirect measurements of the internal carotid artery velocities (ICA PSV). 1. Normal (no stenosis)=ICA PSV < 125 cm/s: ratio < 2.0: ICA EDV<40 cm/s. 2. Less than 50% stenosis=ICA PSV < 125 cm/s: ratio < 2.0: ICA EDV<40 cm/s. 3. 50 to 69% stenosis=ICA PSV of 125 to 230 cm/s: ration 2.0 ? 4.0: ICA EDV 40-100 cm/s. 4. Greater than 70% stenosis to near occlusion= ICA PSV > 230 cm/s: ratio > 4.0: ICA EDV > 100 cm/s. 5. Near occlusion= ICA PSV velocities may be low or undetectable: variable ratio and ICA EDV. 6. Total occlusion=unable to detect flow.
--- NOTE | 2024-01-02 15:50 | CT ---
EXAMINATION TYPE: CT cervical spine wo con DATE OF EXAM: 01/02/2024 COMPARISON: 03/09/2023 HISTORY: hand numbness and neck pain CT DLP: 332 mGycm Automated exposure control for dose reduction was used. TECHNIQUE: CT scan of the cervical spine is obtained without contrast, axial images are obtained, sa gittal and coronal reformatted images are also reviewed. Findings: The craniovertebral junction relationships and prevertebral soft tissues are normal. The cervical vertebral segments are normal in height and alignment there is no fracture or subluxatio n. There is mild disc space narrowing and spondylosis at the C4-5 level. There is mild to moderate disc space narrowing and spondylosis at C5-6 and C6-7 levels. There is mild facet arthropathy in the upper cervical spine bilaterally. There is mild to moderate degeneration of the uncovertebral joints throughout the cervical region, g reatest at the C5-6 and C6-7 levels. There is no bony encroachment of the cervical canal. There is moderate to marked bony encroachment of the C3-4 neural foramina on the right, moderate neur al foraminal encroachment at C5-6 on the right and C6-7 on the right. Evaluation for disc herniation is limited by the technique but no large disc herniations are seen. IMPRESSION: 1. Mild to moderate degenerative disease at C4-5, C5-6 and C6-7 levels. 2. Osteoarthritic changes of the facet joints and uncovertebral joints as described above. 3. Multilevel bony neural foraminal encroachment on the right as described above
== END | disposition home or self-care (01) ==
LOC: RADCTMAIN 13:58
PROVIDERS: ATTEND Family Medicine
DX: R42 Dizziness and giddiness (principal); M47.812 Spondylosis without myelopathy or radiculopathy, cervical region; M99.71 Connective tissue and disc stenosis of intervertebral foramina of cervical region; G43.009 Migraine without aura, not intractable, without status migrainosus; M50.321 Other cervical disc degeneration at C4-C5 level; M50.322 Other cervical disc degeneration at C5-C6 level; M50.323 Other cervical disc degeneration at C6-C7 level; R20.0 Anesthesia of skin
CPT/HCPCS: 72125; 93880

== ENCOUNTER 2024-03-31 10:55 | Day surgery (SDC) | payer MEDICARE ==
[2024-03-26 14:33] VITALS: BMI 28.9
[2024-03-31] MEDS ORDERED: LACTATED RINGERS 1,000 ML BAG ONE (11:00)
[2024-03-31] MEDS ORDERED: LIDOCAINE 1% INJ 10MG/ML (20 ML MDV) ONE (11:45)
[2024-03-31] MEDS ORDERED: PROPOFOL 10 MG/ML 20 ML VIAL IV ONE (11:45)
--- NOTE | 2024-04-24 06:56 | P.PCN ---
Date of Procedure: 03/31/24 Procedure(s) Performed: This is an addendum to the procedure done done on 03/31/2024 Procedure performed colonoscopy Procedure: The colonoscopy was inserted in the rectum and gradually advanced into the cecum and careful examination was performed and the scope was gradually being withdrawn
== END 2024-03-31 12:35 | disposition home or self-care (01) ==
LOC: ORWHC2ENDO 10:55
PROVIDERS: ATTEND Internal Medicine Gastroenterology
DX: Z12.11 Encounter for screening for malignant neoplasm of colon (principal)

== ENCOUNTER → 2024-05-09 | Outpatient (CLI) | payer MEDICARE ==
--- NOTE | 2024-05-09 14:54 | MR ---
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 IV Contrast: cc . (None if empty) FINDINGS: Alignment: The lumbar vertebral bodies have preserved heights and alignment. Cord: The conus medullaris and the distal spinal cord appear unremarkable with regards to their signa l intensity and morphology. Bones/Discs: Mild degeneration changes throughout the spine with osteophyte formation and facet joint arthropathy. Intervertebral disc signal is maintained. No abnormal inversion recovery signal to sugg est bony edema. Compression deformity of L4 with up to 50-70% height loss centrally. There is mild re tropulsion up to 6 mm. T12-L1: No evidence of significant spinal canal stenosis or neural foraminal stenosis. L1-L2: Disc bulge and facet joint arthropathy result in mild spinal canal and mild to moderate bilate ral neural foraminal stenosis. L2-L3: Disc bulge and facet joint arthropathy result in mild spinal canal and mild to moderate bilate ral neural foraminal stenosis. L3-L4: Compression deformity resulting in severe spinal canal stenosis. The neural foramen with facet joint arthropathy with moderate to severe bilateral neural foraminal stenosis. L4-L5: Disc bulge and facet joint arthropathy result in mild spinal canal and moderate bilateral neur al foraminal stenosis. L5-S1: The disc has a rounded posterior morphology without significant spinal canal stenosis. Facet j oint arthropathy with mild bilateral neural foraminal stenosis. No significant spinal canal or neural foraminal stenosis in the remainder of the visualized levels. Other findings: Perineural cyst on the right at level S2 measuring 15 mm and on the left measuring 1 2 mm. IMPRESSION: L3-L4 severe spinal canal stenosis secondary to compression deformity of L4 vertebral body with 50-70 % height loss centrally with 6 mm of retropulsion. The results in moderate to severe bilateral neural foraminal stenosis. [facility], Workstation [id number], 05/09/2024 2:51 PM
== END | disposition home or self-care (01) ==
LOC: RADMRIMAIN 12:26
PROVIDERS: ATTEND Orthopaedic Surgery
DX: M47.816 Spondylosis without myelopathy or radiculopathy, lumbar region (principal); M99.73 Connective tissue and disc stenosis of intervertebral foramina of lumbar region; M48.56XA Collapsed vertebra, not elsewhere classified, lumbar region, initial encounter for fracture
CPT/HCPCS: 72148

== ENCOUNTER → 2024-11-20 | Outpatient (CLI) | payer MEDICARE ==
--- NOTE | 2024-11-20 12:28 | CTL ---
EXAMINATION TYPE: CT Low Dose Lung DATE OF EXAM ORDERED: 11/20/2024 COMPARISON: None. CLINICAL INDICATION: Female, 73 years old with history of Z12.2 LUNG CA SCR Z87.891 FORMER SMOKER; PH H, former smoker 1 PPD x30 years, pt states she quit 15 years ago, Lung cancer screening, History of Smoking/tobacco use. TECHNIQUE: Low dose computed tomography scan was performed through the chest at 1 mm thick sections a nd reconstructed images in multiple planes at 1 mm and [address] DLP: 118.[address] CTDI: 3.1 mGy Automated exposure control for dose reduction was used. CT DIAGNOSTIC QUALITY: Satisfactory FINDINGS: Nodules: There is 5 x 3 mm lingular noncalcified nodule axial image 195. There are few tiny scattered calcified nodules or benign granulomas in the bilateral upper lobes. There is 3 mm noncalcified nodu le in the right upper lobe adjacent to calcified nodule axial image 71. No greater than 6 mm noncalci fied pulmonary nodules. LUNGS: COPD: Severity: Mild Fibrosis: Severity: Mild scattered Lymph nodes: None Other findings: None RIGHT PLEURAL SPACE: Effusion: None Calcification: None Thickening: None Pneumothorax: None LEFT PLEURAL SPACE: Effusion: None Calcification: None Thickening: None Pneumothorax: None HEART: Heart Size: Upper limits of normal Coronary Calcification: Moderate Pericardial Effusion: None OTHER FINDINGS: Upper abdomen: None Bony thorax: Scoliotic curvature/scoliosis is present Supraclavicular region: None Other: None IMPRESSION: No significant greater than 6 mm noncalcified pulmonary nodules. CT LUNG RAD AND CT CHEST RECOMMENDATION: Lung-Rad 2 Benign Appearance or Behavior: Continue annual sc reening with LDCT in 12 months. S Modifier (other clinically significant findings): None [facility], , 11/20/2024 12:26 PM
== END | disposition home or self-care (01) ==
LOC: RADCTMAIN 09:51
PROVIDERS: ATTEND Family Medicine
DX: Z12.2 Encounter for screening for malignant neoplasm of respiratory organs (principal); J44.9 Chronic obstructive pulmonary disease, unspecified; Z87.891 Personal history of nicotine dependence
CPT/HCPCS: 71271

== ENCOUNTER 2025-03-19 07:30 | Emergency (ER) | payer MEDICARE ==
[2025-03-19 07:38] VITALS: TEMP 98
--- NOTE | 2025-03-19 08:00 | ED ---
General Adult HPI - General Chief complaint: Extremity Problem,Nontraumatic Stated complaint: Left leg pain Time Seen by Provider: 03/19/25 07:38 Source: patient, RN notes reviewed Mode of arrival: ambulatory Limitations: no limitations - History of Present Illness Initial comments: Patient is a 74-year-old female present to the emergency department with concerns with left leg pain. Symptoms have been present for about a month now. Patient has discomfort left anterior knee. Patient states sometimes she gets some discomfort of the left lateral femur region. Patient also has discomfort just below the knee. No history of similar symptoms previously. No fever. No swelling. No chest pain or dyspnea. - Related Data Home Medications Medication Instructions Recorded Confirmed Celecoxib [CeleBREX] 200 mg PO BID 03/26/24 03/26/24 Cholecalciferol [Vitamin D3 (25 50 mcg PO DAILY 03/26/24 03/26/24 Mcg = 1000 Iu)] Elderberry (Unknown Dose) 1 tab PO DAILY 03/26/24 03/26/24 Levothyroxine Sodium 100 mcg PO QAM 03/26/24 03/26/24 Allergies Allergy/AdvReac Type Severity Reaction Status Date / Time No Known Allergies Allergy Verified 03/19/25 07:38 Review of Systems ROS Statement: Those systems with pertinent positive or pertinent negative responses have been documented in the HPI. ROS Other: All systems not noted in ROS Statement are negative. Constitutional: Denies: fever Eyes: Denies: eye pain ENT: Denies: ear pain Respiratory: Denies: cough, dyspnea Cardiovascular: Denies: chest pain Gastrointestinal: Denies: abdominal pain Musculoskeletal: Reports: as per HPI. Denies: back pain Neurological: Denies: weakness Past Medical History Past Medical History: Hearing Disorder / Deafness, Thyroid Disorder Additional Past Medical History / Comment(s): Broken vertebrae from a fall over a yr ago, continued occasional pain. Psoriatic arthritis. Current left wrist pain. Occasional shoulder, arm and leg pain. Hemorrhoid, bleeds at times. "Urine and stool has really strong odor". Some trouble hearing. History of Any Multi-Drug Resistant Organisms: None Reported Past Surgical History: Section Past Anesthesia/Blood Transfusion Reactions: No Reported Reaction Past Psychological History: No Psychological Hx Reported Smoking Status: Former smoker, Light tobacco smoker Past Alcohol Use History: None Reported Past Drug Use History: None Reported - Past Family History Brother(s) Family Medical History: Cancer Additional Family Medical History / Comment(s): Stomach cancer. Sister(s) Family Medical History: Cancer Additional Family Medical History / Comment(s): Lung cancer. General Exam Limitations: no limitations General appearance: alert, in no apparent distress Head exam: Present: normocephalic Eye exam: Present: normal appearance Neck exam: Present: normal inspection Respiratory exam: Present: normal lung sounds bilaterally Cardiovascular Exam: Present: regular rate, normal rhythm Expanded Peripheral pulses: 2+: Posterior Tibialis (L), Dorsalis Pedis (L) GI/Abdominal exam: Present: soft. Absent: tenderness Extremities exam: Present: tenderness (Left anterior lower knee medial and lateral. Mild effusion. No warmth. No erythema.). Absent: pedal edema, calf tenderness Back exam: Present: normal inspection. Absent: tenderness Neurological exam: Present: alert. Absent: motor sensory deficit Psychiatric exam: Present: normal affect, normal mood Skin exam: Present: normal color Course Vital Signs 03/19/25 07:35 Temperature 98 F Pulse Rate 77 Respiratory 20 Rate Blood Pressure 143/88 O2 Sat by Pulse 99 Oximetry Medical Decision Making - Medical Decision Making Was pt. sent in by a medical professional or institution (, PA, CUSTOMER CARE ASSISTANT, urgent care, hospital, or intermediate...) When possible be specific @ -No Did you speak to anyone other than the patient for history (EMS, parent, family, police, friend...)? What history was obtained from this source @ -No Did you review nursing and triage notes (agree or disagree)? Why? @ -I reviewed and agree with nursing and triage notes Were old charts reviewed (outside hosp., previous admission, EMS record, old EKG, old radiological studies, urgent care reports/EKG's, intermediate records)? Report findings @ -No old charts were reviewed Differential Diagnosis (chest pain, altered mental status, abdominal pain women, abdominal pain men, vaginal bleeding, weakness, fever, dyspnea, syncope, headache, dizziness, GI bleed, back pain, seizure, CVA, palpatations, mental health, musculoskeletal)? @ -Differential Musculoskeletal Muscular strain, contusion, ligament sprain, fracture, arthritis, septic arthritis, bursitis, cellulitis, muscle spasm, nerve compression, DVT, arterial occlusion, herpes zoster, electrolyte abnormality, tumor.... This is not meant to be in all inclusive list EKG interpreted by me (3pts min.). @ -As above X-rays interpreted by me (1pt min.). @ -X-ray left knee does show some arthritis and effusion CT interpreted by me (1pt min.). @ -None done U/S interpreted by me (1pt. min.). @ -Ultrasound negative for DVT What testing was considered but not performed or refused? (CT, X-rays, U/S, labs)? Why? @ -None What meds were considered but not given or refused? Why? @ -None Did you discuss the management of the patient with other professionals (professionals i.e. Dr., PA, CUSTOMER CARE ASSISTANT, lab, RT, psych nurse, social work program coordinator, preparer samples and repairs, teacher, motorized squad commanding officer, case resolution specialist)? Give summary @ -No Was smoking cessation discussed for >3mins.? @ -No Was critical care preformed (if so, how long)? @ -No Were there social determinants of health that impacted care today? How? (Homelessness, low income, unemployed, alcoholism, drug addiction, transportation, low edu. Level, literacy, decrease access to med. care, long-term, rehab)? @ -No Was there de-escalation of care discussed even if they declined (Discuss DNR or withdrawal of care, Hospice)? DNR status @ -No What co-morbidities impacted this encounter? (DM, HTN, Smoking, COPD, CAD, Cancer, CVA, ARF, Chemo, Hep., AIDS, mental health diagnosis, sleep apnea, morbid obesity)? @ -Patient states she may have had a history of psoriatic arthritis however has no history of psoriasis Was patient admitted / discharged? Hospital course, mention meds given and route, prescriptions, significant lab abnormalities, going to OR and other pertinent info. @ -Patient presents with left leg pain, mostly the knee. Patient does have small effusion and arthritis. Patient updated on this. Discussion regarding brace however patient does not want that at this time. Patient will be discharged with orthopedic follow-up. Undiagnosed new problem with uncertain prognosis? @ -No Drug Therapy requiring intensive monitoring for toxicity (Heparin, Nitro, Insulin, Cardizem)? @ -No Were any procedures done? @ -No Diagnosis/symptom? @ -Knee pain, left Acute, or Chronic, or Acute on Chronic? @ -Acute Uncomplicated (without systemic symptoms) or Complicated (systemic symptoms)? @ -Default Side effects of treatment? @ -No Exacerbation, Progression, or Severe Exacerbation? @ -No Poses a threat to life or bodily function? How? (Chest pain, [place], [place], pneumonia, PE, COPD, DKA, ARF, appy, cholecystitis, CVA, Diverticulitis, Homicidal, Suicidal, threat to staff... and all critical care pts) @ -No Disposition Clinical Impression: Knee pain Disposition: HOME SELF-CARE Condition: Stable Instructions (If sedation given, give patient instructions): Knee Pain (ED), Arthralgia (ED) Additional Instructions: [id number] ibuprofen as needed. Please do follow-up with your primary care physician in the next couple of days for recheck. Please follow-up with orthopedics, number provided. Return for increased pain, fever, redness, swelling, warmth, worsening symptoms or any other concerns. Use your Barrie wrap or knee brace. Ice to affected area. Is patient prescribed a controlled substance at d/c from ED?: No Referrals: Jorge Cho Jr, DO [Primary Care Provider] - 1-2 days Dwaine Mariano DO [Doctor of Osteopathic Medicine] - 1-2 days Time of Disposition: 09:23
--- NOTE | 2025-03-19 08:40 | XR ---
EXAMINATION TYPE: XR knee complete LT DATE OF EXAM: 03/19/2025 8:22 AM COMPARISON: None CLINICAL INDICATION: Female, 74 years old with history of pain; [facility] TECHNIQUE: 3 views FINDINGS: There is medial and patellofemoral compartmental degenerative spurring. Moderate suprapatellar knee j oint effusion. Extensor mechanism appears intact. No acute fracture, subluxation, dislocation. IMPRESSION: 1. Moderate knee joint effusion but without acute osseous abnormality seen. If concern for internal d erangement, MRI can be performed. 2. At least mild mild degenerative change in the medial and patellofemoral compartments. [facility], Workstation: [facility], 03/19/2025 8:37 AM
--- NOTE | 2025-03-19 09:09 | US ---
EXAMINATION TYPE: US venous doppler duplex LE LT DATE OF EXAM: 03/19/2025 8:59 AM COMPARISON: NONE CLINICAL INDICATION: Female, 74 years old with history of pain; Numbness. No swelling or redness. TECHNIQUE: The lower extremity deep venous system is examined utilizing real time linear array sonog ata with graded compression, doppler sonography and color-flow sonography. Grayscale, color doppler , spectral doppler imaging performed of the deep veins of the lower extremities FINDINGS: SIDE PERFORMED: Left VESSELS IMAGED: Common Femoral Vein Deep Femoral Vein Greater Saphenous Vein * Femoral Vein Popliteal Vein Small Saphenous Vein * Proximal Calf Veins Posterior tibial veins (* superficial vessels) Left Leg: Negative for DVT; There is normal flow, compressibility, vascular waveforms. IMPRESSION: No evidence for DVT within the left lower extremity. [facility], , 03/19/2025 9:06 AM
[2025-03-19] MEDS: KETOROLAC 15 MG/ML 1 ML VIAL IM STA (09:38)
[2025-03-19 09:50] VITALS: BP 161/94; PULSE 67; RESP 18
== END 2025-03-19 09:51 | disposition home or self-care (01) ==
LOC: EC 07:30
DX: M25.562 Pain in left knee (principal); F17.200 Nicotine dependence, unspecified, uncomplicated
CPT/HCPCS: 73562; 93971; 99284; 96372; J1885